=== PATIENT | female | born 1945 | race Caucasian/White ===

== ENCOUNTER 2017-08-02 17:51 | Inpatient (IN) ==
[2017-08-02] MEDS ORDERED: ONDANSETRON 4 MG/2 ML VIAL IV STA (19:04)
[2017-08-02] MEDS ORDERED: PANTOPRAZOLE 40 MG VIAL IV STA (19:04)
[2017-08-02 20:07] LABS: Basophils % 0.3 % (0.0-0.8); Eosinophils # 0.3 10*3/uL (0.0-0.87); Eosinophils % 2.7 % (0.00-10.9); Hematocrit 42.1 VOL% (35.7-47.0); Hemoglobin 14.3 GM/DL (12.0-16.0); Immature Granulocytes % 0.4 %; Immature Granulocytes Absolute 0.05 #; Lymphocytes # 4.3 10*3/uL (1.4-4.0); Lymphocytes % 36.3 % (21.3-54.2); Mean Corpuscular Hemoglobin 34 PG (27-34); Mean Corpuscular Volume 99.3 FL (87-102); Monocytes # 0.8 10*3/uL (0.11-0.8); Monocytes % 6.3 % (1.7-12.7); Neutrophils # 6.4 10*3/uL (1.4-7.4); Platelet Count 208 T/CUMM (130-400); Red Blood Count 4.24 MC/CUMM (3.8-5.5); Red Cell Distribution Width 13.2 % (9.3-17.3); White Blood Count 11.9 T/CUMM (4-12)
[2017-08-02 20:40] LABS: Alanine Aminotransferase 42 U/L (13-56); Albumin 3.9 G/DL (3.4-5.0); Alkaline Phosphatase 90 U/L (45-117); Aspartate Amino Transferase 32 U/L (0-37); Blood Urea Nitrogen 33 MG/DL (7-18); Calcium 9.5 MG/DL (8.5-10.1); Glucose 117 MG/DL (74-106); Osmolality,Calculated 286.4 MOS/KG (273-304); Sodium 140 MMOL/L (136-145); Total Protein 7.4 G/DL (6.4-8.3); Troponin I Only < 0.015 NG/ML (0.00-0.045)
[2017-08-02 21:03] LABS: PT Patient Result 10.3 SECS; Partial Thromboplastin Time 24.7 SECS (0-40)
[2017-08-02] MEDS ORDERED: ACETAMINOPHEN 325 MG TABLET PO PRN (21:52)
[2017-08-02] MEDS ORDERED: ONDANSETRON 4 MG/2 ML VIAL IV PRN (21:52)
[2017-08-02] MEDS ORDERED: DOCUSATE SODIUM 100 MG CAPSULE PO PRN (21:52)
[2017-08-02] MEDS ORDERED: guaiFENesin/DM ER 600-30 MG TABLET PO PRN (21:52)
[2017-08-02] MEDS ORDERED: diphenhydrAMINE CAP 25 MG CAPSULE PO PRN (21:52)
[2017-08-02] MEDS ORDERED: PANTOPRAZOLE 40 MG VIAL IV ONE (21:58)
[2017-08-02] MEDS ORDERED: ENOXAPARIN 40 MG/0.4 ML SYRINGE SUBCUT SCH (22:00)
[2017-08-02] MEDS ORDERED: NITROGLYCERIN SL 0.4 MG TABLET SL PRN (22:21)
[2017-08-02] MEDS ORDERED: TEMAZEPAM 15 MG CAPSULE PO PRN (22:21)
[2017-08-03] MEDS: MECLIZINE 25 MG TABLET PO SCH ×3 (00:04→21:24)
[2017-08-03] MEDS: ACETAMINOPHEN 325 MG TABLET PO SCH ×3 (00:09→20:47)
[2017-08-03] MEDS: SODIUM CHLORIDE 0.45% 1,000 ML IV SCH ×2 (00:10→15:38)
[2017-08-03 00:49] LABS: Apearance,Urine CLEAR (Clear); Bilirubin,Urine Negative (Negative); Blood, Urine Negative (Negative); Glucose,Urine (UA) Negative (Negative); Ketones,Urine Negative (Negative); Mucus,Urine Occasional /LPF (Occasional); Nitrite,Urine Negative (Negative); Protein,Urine Negative; Squamous Epithelial Cell,Urine Occasional /HPF (0-10); Urine Color Yellow (Yellow); Urine Specific Gravity 1.016 (1.001-1.035); Urine Urobilinogen < 2.0 EU/DL (0.2-1.0); WBC,Urine 2 /HPF (0-6)
[2017-08-03 04:58] LABS: Basophils % 0.3 % (0.0-0.8); Eosinophils # 0.3 10*3/uL (0.0-0.87); Eosinophils % 3.1 % (0.00-10.9); Hematocrit 37.8 VOL% (35.7-47.0); Hemoglobin 13.3 GM/DL (12.0-16.0); Immature Granulocytes % 0.3 %; Immature Granulocytes Absolute 0.03 #; Lymphocytes # 3.9 10*3/uL (1.4-4.0); Mean Corpuscular HGB Conc 35.2 GM/DL (32-36); Mean Corpuscular Hemoglobin 34 PG (27-34); Mean Corpuscular Volume 96.4 FL (87-102); Mean Platelet Volume 10.7 FL (9.6-12.0); Monocytes # 0.7 10*3/uL (0.11-0.8); Monocytes % 7.1 % (1.7-12.7); Neutrophils % 50.2 % (38.7-73.9); Platelet Count 215 T/CUMM (130-400); Red Blood Count 3.92 MC/CUMM (3.8-5.5); Red Cell Distribution Width 13.2 % (9.3-17.3)
[2017-08-03 05:34] LABS: Troponin I Only < 0.015 NG/ML (0.00-0.045)
[2017-08-03 05:39] LABS: Calcium 9.3 MG/DL (8.5-10.1); Osmolality,Calculated 290.3 MOS/KG (273-304); Risk Ratio 3.15; Thyroid Stimulating Hormone 2.08 uIU/ml (0.358-3.74); VLDL CHOLESTEROL 42.2 MG/DL
[2017-08-03] MEDS: LEVOTHYROXINE 50 MCG TABLET PO SCH (06:03)
[2017-08-03] MEDS ORDERED: TIOTROPIUM 18 MCG INH SCH (09:00)
[2017-08-03] MEDS ORDERED: ROTIGOTINE TRANSDERM SCH (09:00)
[2017-08-03] MEDS ORDERED: PANTOPRAZOLE 40 MG TABLET PO SCH (09:00)
[2017-08-03] MEDS: amLODIPine 5 MG TABLET PO SCH (09:07)
[2017-08-03] MEDS: DULoxetine 30 MG CAPSULE PO SCH (09:07)
[2017-08-03] MEDS: MULTIVITAMIN (OCUVITE) TABLET PO SCH (09:07)
[2017-08-03] MEDS: PANTOPRAZOLE 40 MG TABLET PO SCH (09:07)
[2017-08-03] MEDS: CHOLECALCIFEROL 1,000 UNIT TABLET PO SCH (09:07)
[2017-08-03] MEDS: ALLOPURINOL 300 MG TABLET PO SCH (09:07)
[2017-08-03] MEDS: FOLIC ACID 1 MG TABLET PO SCH (09:08)
[2017-08-03] MEDS: ASPIRIN EC 81 MG TABLET PO SCH (09:08)
[2017-08-03] MEDS: CYANOCOBALAMIN 500 MCG TABLET PO SCH (09:08)
[2017-08-03] MEDS: MONTELUKAST 10 MG TABLET PO SCH (09:10)
[2017-08-03] MEDS ORDERED: ASPIRIN 325 MG TABLET PO ONE (10:58)
[2017-08-03] MEDS ORDERED: POTASSIUM CHLORIDE RIDER 10 MEQ in PREMIX 1 EACH IV PRN (10:58)
[2017-08-03] MEDS ORDERED: DIAZEPAM 5 MG TABLET PO ONE (10:58)
[2017-08-03] MEDS ORDERED: diphenhydrAMINE CAP 25 MG CAPSULE PO ONE (10:58)
[2017-08-03] MEDS ORDERED: MAGNESIUM SULF RIDER 2 GM in PREMIX 1 EACH IV PRN (10:58)
[2017-08-03] MEDS: INSULIN REGULAR 100 UNIT/ML SUBCUT SCH ×3 (11:16→21:24)
[2017-08-03] MEDS: IPRATROPIUM 500 MCG/2.5 ML NEB RESP TX SCH ×3 (11:59→19:41)
[2017-08-03 13:14] LABS: Troponin I Only < 0.015 NG/ML (0.00-0.045)
[2017-08-03] MEDS ORDERED: fentaNYL 100 MCG/2 ML VIAL ONE (13:24)
[2017-08-03] MEDS ORDERED: MIDAZOLAM 2 MG/2 ML VIAL ONE (13:24)
[2017-08-03] MEDS ORDERED: ATORVASTATIN 20 MG TABLET PO SCH (21:00)
[2017-08-04] MEDS: SODIUM CHLORIDE 0.45% 1,000 ML IV SCH (04:33)
[2017-08-04 04:57] LABS: Basophils % 0.4 % (0.0-0.8); Eosinophils # 0.3 10*3/uL (0.0-0.87); Eosinophils % 3.6 % (0.00-10.9); Hematocrit 37.3 VOL% (35.7-47.0); Hemoglobin 12.4 GM/DL (12.0-16.0); Immature Granulocytes % 0.4 %; Immature Granulocytes Absolute 0.03 #; Lymphocytes # 2.4 10*3/uL (1.4-4.0); Lymphocytes % 34.1 % (21.3-54.2); Mean Corpuscular HGB Conc 33.2 GM/DL (32-36); Mean Corpuscular Hemoglobin 33 PG (27-34); Mean Platelet Volume 10.4 FL (9.6-12.0); Monocytes # 0.5 10*3/uL (0.11-0.8); Monocytes % 6.6 % (1.7-12.7); Neutrophils # 3.8 10*3/uL (1.4-7.4); Neutrophils % 54.9 % (38.7-73.9); Platelet Count 207 T/CUMM (130-400); Red Blood Count 3.73 MC/CUMM (3.8-5.5); Red Cell Distribution Width 13.2 % (9.3-17.3)
[2017-08-04 05:46] LABS: Calcium 8.4 MG/DL (8.5-10.1); Osmolality,Calculated 286.1 MOS/KG (273-304); Potassium 4.5 MMOL/L (3.5-5.1)
[2017-08-04] MEDS: LEVOTHYROXINE 50 MCG TABLET PO SCH (06:49)
[2017-08-04] MEDS: IPRATROPIUM 500 MCG/2.5 ML NEB RESP TX SCH ×2 (07:04→10:41)
[2017-08-04] MEDS: PANTOPRAZOLE 40 MG TABLET PO SCH (08:35)
[2017-08-04] MEDS: MONTELUKAST 10 MG TABLET PO SCH (08:35)
[2017-08-04] MEDS: CHOLECALCIFEROL 1,000 UNIT TABLET PO SCH (08:36)
[2017-08-04] MEDS: FOLIC ACID 1 MG TABLET PO SCH (08:36)
[2017-08-04] MEDS: ACETAMINOPHEN 325 MG TABLET PO SCH (08:36)
[2017-08-04] MEDS: MECLIZINE 25 MG TABLET PO SCH (08:36)
[2017-08-04] MEDS: DULoxetine 30 MG CAPSULE PO SCH (08:36)
[2017-08-04] MEDS: ALLOPURINOL 300 MG TABLET PO SCH (08:36)
[2017-08-04] MEDS: ASPIRIN EC 81 MG TABLET PO SCH (08:37)
[2017-08-04] MEDS: MULTIVITAMIN (OCUVITE) TABLET PO SCH (08:37)
[2017-08-04] MEDS: amLODIPine 5 MG TABLET PO SCH (08:37)
[2017-08-04] MEDS: INSULIN REGULAR 100 UNIT/ML SUBCUT SCH ×2 (08:40→11:32)
[2017-08-04] MEDS: CYANOCOBALAMIN 500 MCG TABLET PO SCH (08:40)
[2017-08-04 11:31] VITALS: BP 128/73
== END 2017-08-04 12:05 | disposition home or self-care (01) | DRG 287 ==
LOC: N.ED 17:51 → N.EDINP 21:52 → N.TELEN 22:53
PROC: CLCCHCL (ICD-10-PCS; 2017-08-03 13:45)

== ENCOUNTER 2019-09-28 01:16 | Observation (INO) ==
[2019-09-28 01:50] LABS: Basophils % 0.3 % (0.0-0.8); Eosinophils # 0.2 10*3/uL (0.0-0.87); Eosinophils % 2.1 % (0.00-10.9); Hematocrit 41.4 VOL% (35.7-47.0); Hemoglobin 13.8 GM/DL (12.0-16.0); Immature Granulocytes % 0.3 %; Immature Granulocytes Absolute 0.03 #; Lymphocytes # 3.7 10*3/uL (1.4-4.0); Mean Corpuscular HGB Conc 33.3 GM/DL (32-36); Mean Corpuscular Volume 99.5 FL (87-102); Mean Platelet Volume 9.9 FL (9.6-12.0); Monocytes % 5.4 % (1.7-12.7); Neutrophils % 55.9 % (38.7-73.9); Platelet Count 285 T/CUMM (130-400); Red Blood Count 4.16 MC/CUMM (3.8-5.5); Red Cell Distribution Width 13.3 % (9.3-17.3); White Blood Count 10.2 T/CUMM (4-12)
[2019-09-28 02:12] LABS: INR 0.9; PT Patient Result 10.2 SECS (9.8-11.9)
[2019-09-28 02:32] LABS: Albumin 3.7 G/DL (3.4-5.0); Bilirubin,Total 0.4 MG/DL (0.2-1.0); Calcium 9.2 MG/DL (8.5-10.1); Osmolality,Calculated 287.3 MOS/KG (273-304); Total Protein 7.9 G/DL (6.4-8.3)
[2019-09-28] MEDS ORDERED: ASPIRIN 325 MG TABLET PO STA (03:13)
[2019-09-28] MEDS ORDERED: ONDANSETRON 4 MG/2 ML VIAL IV ONE (03:15)
[2019-09-28] MEDS ORDERED: ALBUTEROL/IPRATROPIUM 3 ML NEB RESP TX PRN (03:29)
[2019-09-28] MEDS ORDERED: GLUCAGON 1 MG VIAL IM PRN (03:29)
[2019-09-28] MEDS ORDERED: diphenhydrAMINE CAP 25 MG CAPSULE PO PRN (03:29)
[2019-09-28] MEDS ORDERED: guaiFENesin/DM ER 600-30 MG TABLET PO PRN (03:29)
[2019-09-28] MEDS ORDERED: hydrALAZINE 20 MG/1 ML VIAL IV PRN (03:29)
[2019-09-28] MEDS ORDERED: NICOTINE 21 MG/24 HR PATCH TRANSDERM PRN (03:29)
[2019-09-28] MEDS ORDERED: ALUMINUM/MAGNES/SIMETH MAX STR 30 ML UDCUP PO PRN (03:29)
[2019-09-28] MEDS ORDERED: ACETAMINOPHEN 325 MG TABLET PO PRN (03:29)
[2019-09-28] MEDS ORDERED: ONDANSETRON 4 MG/2 ML VIAL IV PRN (03:29)
[2019-09-28] MEDS ORDERED: DEXTROSE 50% 25 GM/50 ML VIAL IV PRN (03:29)
[2019-09-28] MEDS ORDERED: SODIUM CHLORIDE 0.9% 1,000 ML IV SCH (03:30)
[2019-09-28 06:28] LABS: Thyroid Stimulating Hormone 6.01 uIU/ml (0.358-3.74)
[2019-09-28] MEDS ORDERED: NITROGLYCERIN SL 0.4 MG TABLET SL PRN (06:35)
[2019-09-28 07:37] LABS: Risk Ratio 4.64; VLDL CHOLESTEROL 58.8 MG/DL
[2019-09-28 08:37] LABS: Apearance,Urine CLEAR (Clear); Bacteria,Urine Occasional /HPF (Few); Bilirubin,Urine Negative (Negative); Blood, Urine Negative (Negative); Glucose,Urine (UA) Negative (Negative); Ketones,Urine Negative (Negative); Nitrite,Urine Negative (Negative); Protein,Urine Negative; RBC,Urine 2 /HPF (0-4); Renal Epithelial Cells,Urine Occasional /HPF (<1); Squamous Epithelial Cell,Urine Occasional /HPF (0-10); Urine Color Straw (Yellow); Urine Specific Gravity 1.011 (1.001-1.035); Urine Urobilinogen < 2.0 EU/DL (0.2-1.0); WBC,Urine 9 /HPF (0-6)
[2019-09-28] MEDS: CIPROFLOXACIN 250 MG TABLET PO SCH (21:27)
[2019-09-29] MEDS: CIPROFLOXACIN 250 MG TABLET PO SCH (08:12)
[2019-09-29] MEDS ORDERED: ASPIRIN 325 MG TABLET PO SCH (09:00)
[2019-09-29 12:39] VITALS: BP 122/56
== END 2019-09-29 16:06 | disposition home or self-care (01) ==
LOC: N.EDINP 01:16 → N.ED 01:16 → SUATTDRO 03:29 → N.EDINP 04:45 → N.TELEN 04:52
PROVIDERS: ADMIT Internal Medicine; ATTEND Internal Medicine

== ENCOUNTER 2021-07-24 20:41 | Observation (INO) ==
[2021-07-24 21:25] LABS: Basophils % 0.4 % (0.0-0.8); Eosinophils # 0.3 10*3/uL (0.0-0.87); Hematocrit 43.2 VOL% (35.7-47.0); Hemoglobin 14.1 GM/DL (12.0-16.0); Immature Granulocytes % 0.5 %; Immature Granulocytes Absolute 0.05 #; Lymphocytes # 3.5 10*3/uL (1.4-4.0); Lymphocytes % 34.6 % (21.3-54.2); Mean Corpuscular HGB Conc 32.6 GM/DL (32-36); Mean Corpuscular Volume 98.4 FL (87-102); Mean Platelet Volume 10.3 FL (9.6-12.0); Monocytes # 0.6 10*3/uL (0.11-0.8); Monocytes % 5.8 % (1.7-12.7); Neutrophils % 55.7 % (38.7-73.9); Platelet Count 212 T/CUMM (130-400); Red Blood Count 4.39 MC/CUMM (3.8-5.5); Red Cell Distribution Width 12.9 % (9.3-17.3); White Blood Count 10.2 T/CUMM (4-12)
[2021-07-24] MEDS ORDERED: ASPIRIN 325 MG TABLET PO STA (21:26)
[2021-07-24] MEDS ORDERED: SODIUM CHLORIDE 0.9% 500 ML IV STA (21:26)
[2021-07-24 21:40] LABS: Albumin 3.6 G/DL (3.4-5.0); Bilirubin,Total 0.6 MG/DL (0.20-1.00); Calcium 9.2 MG/DL (8.5-10.1); Osmolality,Calculated 279.5 MOS/KG (273-304); Potassium 5.2 MMOL/L (3.5-5.1); Total Protein 7.6 G/DL (6.4-8.2)
[2021-07-24] MEDS ORDERED: GLUCAGON 1 MG VIAL IM PRN (23:21)
[2021-07-24] MEDS ORDERED: NITROGLYCERIN SL 0.4 MG TABLET SL PRN (23:21)
[2021-07-24] MEDS ORDERED: MORPHINE 2 MG/1 ML SYRINGE IV PRN (23:21)
[2021-07-24] MEDS ORDERED: ONDANSETRON 4 MG/2 ML VIAL IV PRN (23:21)
[2021-07-24] MEDS ORDERED: ENOXAPARIN 80 MG/0.8 ML SYRINGE SUBCUT ONE (23:30)
[2021-07-24] MEDS ORDERED: DEXTROSE 10% 250 ML BAG IV PRN (23:31)
[2021-07-24] MEDS ORDERED: TEMAZEPAM 15 MG CAPSULE PO PRN (23:34)
[2021-07-25] MEDS ORDERED: IPRATROPIUM 500 MCG/2.5 ML NEB RESP TX PRN (03:00)
[2021-07-25 03:46] LABS: Partial Thromboplastin Time 29.5 SECS (23.8-32.1)
[2021-07-25 04:25] LABS: Osmolality,Calculated 288.8 MOS/KG (273-304); Potassium 3.9 MMOL/L (3.5-5.1)
[2021-07-25] MEDS ORDERED: SODIUM CHLORIDE 0.9% 1,000 ML IV SCH (04:30)
[2021-07-25 06:03] LABS: Basophils % 0.2 % (0.0-0.8); Eosinophils # 0.2 10*3/uL (0.0-0.87); Eosinophils % 1.8 % (0.00-10.9); Hematocrit 38.2 VOL% (35.7-47.0); Hemoglobin 12.9 GM/DL (12.0-16.0); Immature Granulocytes % 0.4 %; Immature Granulocytes Absolute 0.03 #; Lymphocytes # 3.5 10*3/uL (1.4-4.0); Lymphocytes % 41.1 % (21.3-54.2); Mean Corpuscular HGB Conc 33.8 GM/DL (32-36); Mean Corpuscular Volume 95.3 FL (87-102); Mean Platelet Volume 10.6 FL (9.6-12.0); Monocytes # 0.5 10*3/uL (0.11-0.8); Neutrophils % 50.5 % (38.7-73.9); Platelet Count 272 T/CUMM (130-400); Red Blood Count 4.01 MC/CUMM (3.8-5.5); White Blood Count 8.5 T/CUMM (4-12)
[2021-07-25] MEDS ORDERED: LEVOTHYROXINE 50 MCG TABLET PO SCH (06:30)
[2021-07-25 06:43] LABS: Risk Ratio 4.45; Thyroid Stimulating Hormone 8.61 uIU/ml (0.358-3.74); VLDL Cholesterol 23.6 MG/DL
[2021-07-25] MEDS: DULoxetine 30 MG CAPSULE PO SCH (08:52)
[2021-07-25] MEDS: ASPIRIN EC 325 MG TABLET PO SCH (08:52)
[2021-07-25] MEDS: LOSARTAN 25 MG TABLET PO SCH (08:52)
[2021-07-25] MEDS: FOLIC ACID 1 MG TABLET PO SCH (08:52)
[2021-07-25] MEDS: allopurinoL 300 MG TABLET PO SCH (08:53)
[2021-07-25] MEDS: PANTOPRAZOLE 40 MG TABLET PO SCH (08:53)
[2021-07-25] MEDS: MONTELUKAST 10 MG TABLET PO SCH (08:53)
[2021-07-25] MEDS: CHOLECALCIFEROL 1,000 UNIT TABLET PO SCH (08:53)
[2021-07-25] MEDS: INSULIN REGULAR 100 UNIT/ML SUBCUT SCH ×4 (08:54→21:35)
[2021-07-25] MEDS ORDERED: POTASSIUM CHLORIDE RIDER 10 MEQ/100 ML PREMIX IV PRN (09:21)
[2021-07-25] MEDS ORDERED: MAGNESIUM SULF RIDER 2 GM/50 ML PREMIX IV PRN (09:21)
[2021-07-25] MEDS: CYANOCOBALAMIN 500 MCG TABLET PO SCH (10:22)
[2021-07-25] MEDS: MULTIVITAMIN (OCUVITE) TABLET PO SCH (10:22)
[2021-07-25] MEDS ORDERED: ENOXAPARIN 40 MG/0.4 ML SYRINGE SUBCUT SCH (21:00)
[2021-07-25] MEDS ORDERED: ATORVASTATIN 40 MG TABLET PO SCH (21:00)
[2021-07-25] MEDS ORDERED: rOPINIRole 1 MG TABLET PO SCH (21:00)
[2021-07-26] MEDS ORDERED: LEVOTHYROXINE 75 MCG TABLET PO SCH (06:30)
[2021-07-26] MEDS ORDERED: HEPARIN/NACL 0.9% 2 UNITS/ML 2,000 UNIT/1,000 ML BAG IV ONE (06:55)
[2021-07-26] MEDS ORDERED: LIDOCAINE 1%/EPI INJ 20 ML VIAL ONE (06:55)
[2021-07-26 07:00] LABS: Basophils % 0.1 % (0.0-0.8); Eosinophils # 0.2 10*3/uL (0.0-0.87); Eosinophils % 2.7 % (0.00-10.9); Hematocrit 38.3 VOL% (35.7-47.0); Immature Granulocytes % 0.4 %; Immature Granulocytes Absolute 0.03 #; Lymphocytes # 2.8 10*3/uL (1.4-4.0); Lymphocytes % 37.2 % (21.3-54.2); Mean Corpuscular HGB Conc 33.9 GM/DL (32-36); Mean Corpuscular Volume 96.7 FL (87-102); Mean Platelet Volume 10.5 FL (9.6-12.0); Monocytes # 0.5 10*3/uL (0.11-0.8); Monocytes % 6.9 % (1.7-12.7); Neutrophils % 52.7 % (38.7-73.9); Platelet Count 245 T/CUMM (130-400); Red Blood Count 3.96 MC/CUMM (3.8-5.5); White Blood Count 7.6 T/CUMM (4-12)
[2021-07-26] MEDS ORDERED: DEXTROSE 5% NACL 0.45% 1,000 ML IV SCH (07:00)
[2021-07-26] MEDS ORDERED: DIAZEPAM 5 MG TABLET PO ONE (07:00)
[2021-07-26] MEDS ORDERED: diphenhydrAMINE CAP 25 MG CAPSULE PO ONE (07:00)
[2021-07-26 07:52] LABS: Calcium 8.9 MG/DL (8.5-10.1); Osmolality,Calculated 285.1 MOS/KG (273-304); Potassium 3.9 MMOL/L (3.5-5.1)
[2021-07-26] MEDS: INSULIN REGULAR 100 UNIT/ML SUBCUT SCH ×2 (08:17→12:49)
[2021-07-26] MEDS ORDERED: fentaNYL 100 MCG/2 ML VIAL ONE (08:27)
[2021-07-26] MEDS ORDERED: MIDAZOLAM 2 MG/2 ML VIAL ONE (08:27)
[2021-07-26] MEDS: ASPIRIN EC 325 MG TABLET PO SCH (11:13)
[2021-07-26] MEDS: DULoxetine 30 MG CAPSULE PO SCH (11:13)
[2021-07-26] MEDS: MULTIVITAMIN (OCUVITE) TABLET PO SCH (11:13)
[2021-07-26] MEDS: CHOLECALCIFEROL 1,000 UNIT TABLET PO SCH (11:13)
[2021-07-26] MEDS: PANTOPRAZOLE 40 MG TABLET PO SCH (11:13)
[2021-07-26] MEDS: FOLIC ACID 1 MG TABLET PO SCH (11:14)
[2021-07-26] MEDS: allopurinoL 300 MG TABLET PO SCH (11:14)
[2021-07-26] MEDS: MONTELUKAST 10 MG TABLET PO SCH (11:14)
[2021-07-26] MEDS: LOSARTAN 25 MG TABLET PO SCH (11:14)
[2021-07-26] MEDS: CYANOCOBALAMIN 500 MCG TABLET PO SCH (12:47)
[2021-07-26 14:01] VITALS: BP 132/62
== END 2021-07-26 15:11 | disposition home or self-care (01) ==
LOC: N.EDINP 20:41 → N.ED 20:41 → SUATTDRO 23:21 → N.TELES 07-25 11:22
PROVIDERS: ADMIT Internal Medicine; ATTEND Internal Medicine
PROC: CLCCHCL (ICD-10-PCS; 2021-07-26 08:45)